=== PATIENT | male | born 1975 | race African-American/Black ===

== ENCOUNTER 2017-04-14 09:44 | Observation (INO) | payer SELFPAY ==
[2017-04-14] MEDS ORDERED: Nitroglycerin 0.4 MG TAB (25 Tab Bottle) ONE (10:14)
[2017-04-14 10:16] LABS: #Basophils 0.1 thou/uL (0.0-0.2); #Eosinphils 0.4 thou/uL (0.0-0.7); #Lymphocytes 3.9 thou/uL (1.20-3.40); #Neutrophils 7.1 thou/uL (1.40-6.50); %Eosinophils 2.9 % (0.0-10.0); %Lymphocytes 31.2 % (21.0-51.0); %Monocytes 8.3 % (0.0-10.0); Hematocrit 46.5 % (42.0-52.0); Mean Platelet Volume 6.7 fL (7.4-10.4); Red Blood Cell (RBC) Count 4.72 mill/uL (4.70-6.10); White Blood Cell (WBC) Count 12.5 thou/uL (4.8-10.8)
--- NOTE | 2017-04-14 10:18 | RAD ---
SINGLE VIEW OF THE CHEST: Comparison: 10-31-13 History: Chest pain since last night. FINDINGS: Single view of the chest shows a normal sized cardiomediastinal silhouette. There is no evidence of consolidation, mass, or pleural effusion. The bones are unremarkable. IMPRESSION: No evidence of acute cardiopulmonary disease. POS: [facility]
[2017-04-14 10:42] LABS: ALT (SGPT) 31 U/L (8-55); AST (SGOT) 29 U/L (5-34); Alkaline Phosphatase 66 U/L (40-150); Anion Gap 11 mmol/L (10-20); BUN (Urea Nitrogen) 10 mg/dL (8.9-20.6); Bilirubin, Total 0.3 mg/dL (0.2-1.2); CK (CPK) 719 U/L (30-200); Calc. Creatinine Clearance 0 mL/min (70-130); Calcium 9.5 mg/dL (7.8-10.44); Carbon Dioxide 24 mmol/L (22-29); Chloride 108 mmol/L (98-107); Estimated GFR-MDRD 80; Globulin 3.2 g/dL (2.4-3.5); Lipase 45 U/L (8-78); Protein, Total 7.4 g/dL (6.0-8.3)
--- NOTE | 2017-04-14 12:42 | SS ---
PRIMARY CARE PHYSICIAN: [facility] call admission. REASON FOR ADMISSION: Chest pain. HISTORY OF PRESENT ILLNESS: A 41-year-old -[place] male who presented to emergency room wit h complaint of chest pain. The patient reports that yesterday night he played softball and he was e xcited and he was running and doing a lot of physical activity. Since then, he is having chest pain which is reproducible on his chest wall that increases with deep breathing as well as movement of t he chest. He denies any associated palpitations, dizziness, or syncope. Patient reports that only new things he noticed for the last week or so that whenever he runs, he gets out of breath. This is new for him. Otherwise, he was pretty much very active and able to run 4 miles without any problem , but lately he is feeling out of breath with exertion. 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 The patient is continuing to smoke. He denies any other medical history. He does report family his tory of coronary artery disease. Last night, he was uncomfortable. He was taking pain medications, but his pain was not improving an d this morning his pain got worse and that is why he decided to come to emergency room for evaluatio n. In the emergency room, chest x-ray was normal. Routine blood tests showed mild rhabdomyolysis. 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 REVIEW OF SYSTEMS: The following complete review of systems was negative, unless otherwise mentione d in the HPI or below: Constitutional: Weight loss or gain, ability to conduct usual activities. Skin: Rash, itching. Eyes: Double vision, pain. ENT/Mouth: Nose bleeding, neck stiffness, pain, tenderness. Cardiovascular: Palpitations, dyspnea on exertion, orthopnea. Respiratory: Shortness of breath, wheezing, cough, hemoptysis, fever or night sweats. Gastrointestinal: Poor appetite, abdominal pain, heartburn, nausea, vomiting, constipation, or diar cynthia. Genitourinary: Urgency, frequency, dysuria, nocturia. Musculoskeletal: Pain, swelling. Neurologic/Psychiatric: Anxiety, depression. Allergy/Immunologic: Skin rash, bleeding tendency. Please see my HPI for pertinent positive and negative. All other review of systems reviewed and neg ative except as mentioned in the HPI. PAST MEDICAL HISTORY: Reviewed and negative. PAST SURGICAL HISTORY: Reviewed and negative. PAST PSYCHIATRIC HISTORY: Reviewed and negative. SOCIAL HISTORY: The patient is smoking about 1 pack per day. He drinks alcohol socially. He denie s any other illicit drug abuse. 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 FAMILY HISTORY: Positive for coronary artery disease to his father. No family history of cancer or stroke. EMERGENCY ROOM COURSE: The patient is given nitroglycerin 0.4 mg. CURRENT HOME MEDICATIONS: The patient is not taking any prescribed or non-prescribed medication. ALLERGIES: No known drug allergies. PHYSICAL EXAMINATION: VITAL SIGNS: Currently, blood pressure 137/88, pulse 60, respiratory rate 18, temperature 98.2, sat uration 96% on room air, and weight 84.3 kilograms. GENERAL: The patient is currently alert, awake, no obvious acute distress. HEAD: Normocephalic, atraumatic. EYES: Pupils round, reactive to light. Extraocular muscle intact. ENT: Oropharynx within normal limits. Moist mucous membranes, no oral lesion, no pharyngeal erythe ma, no exudate. NECK: Supple, range of motion is normal. No meningeal signs of irritation. LUNGS: Clear to auscultation without any rhonchi or rales. CARDIAC: S1, S2 regular. No murmur, no gallop, no rub. ABDOMEN: Soft, bowel sounds present, nontender, nondistended. No organomegaly, no mass, no suprapu bic tenderness. BACK: Examination unremarkable. No CVA tenderness. EXTREMITIES: Upper extremity passive movements of all joints are normal. Lower extremity, no edema . Good peripheral pulsation. No calf tenderness. SKIN: No skin rash. HEMATOLOGICAL SYSTEM: No lymphadenopathy. PSYCHIATRIC: Normal affect. NEUROLOGIC: Nonfocal examination. The patient moves all 4 limbs. Plantar bilateral flexor. IMAGING AND SIGNIFICANT LABORATORY DATA: 1. EKG based on my review reveals normal sinus rhythm without any ischemic changes. Chest x-ray ba sed on my review, no acute cardiopulmonary process. 2. CBC: WBC 12.5, hemoglobin 15.0, platelet 283, MCV 98.4. BMP: Sodium 139, potassium 4.0, chlor esetr 108, carbon dioxide 24, BUN 10, creatinine 1.22, glucose 94, calcium 9.5. 3. LFT: AST 29, ALT 31, alkaline phosphatase 66, albumin 4.2, lipase 45, CK 719, CK-MB 2.2, tropon in I 0.010. ASSESSMENT AND PLAN/IMPRESSION: 1. Chest pain. Patient's chest pain description is classic for musculoskeletal pain. Patient has elevated total CK and he has mild rhabdomyolysis. The patient's chest pain has started after doing strenuous physical activity and he has reproducible pain. He has a description of pain in which frances n is getting worse with movement and deep breathing is most likely because of that. This patient do es not have any risk factor for thromboembolic disorder. At this point, we will check D-dimer to ru le out any thromboembolic disorder. The patient's pain will be controlled with Toradol 30 mg IV q.6 hourly and we will also use [place] on a p.r.n. basis. Once pain is under control, then I advised th is patient to take Tylenol or Motrin over the counter basis as needed basis. Another description of this particular patient is dyspnea with exertion and that is new to him and that is why I will perf orm D-dimer test as well as I will perform stress test to rule out underlying ischemia, considering angina equivalent given his history of smoking as well as family history. 2. Tobacco abuse disorder. Smoking cessation counseling given. Healthy lifestyle measures discuss ed with the patient. 3. Rhabdomyolysis. The patient is advised to avoid strenuous physical activity and patient is advi sed to keep himself hydrated well with oral liquids. 4. Deep venous thrombosis prophylaxis not needed because we are expecting discharge in 24 hours. 5. Gastrointestinal prophylaxis, Pepcid 20 mg p.o. b.i.d. 6. Code status: The patient is FULL CODE. Disposition plan based on stress test result. DATE OF ADMISSION: 04/14/2017 DATE OF DISCHARGE: 04/14/2017 DISCHARGE DISPOSITION: Home. PRIMARY DISCHARGE DIAGNOSES: 1. Chest pain, likely due to musculoskeletal. 2. Rhabdomyolysis. 3. Dyspnea on exertion, ruled out acute coronary syndrome. SECONDARY DISCHARGE DIAGNOSIS: Tobacco abuse disorder. PRIMARY PROCEDURES AND OPERATIONS: None. RADIOLOGICAL INVESTIGATION: Chest x-ray normal. Stress test pending. SIGNIFICANT LABORATORY DATA: Please see my HPI above for further laboratory results. CONTRAINDICATIONS: None. CODE STATUS: FULL CODE. 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 ALLERGIES: No known drug allergy. DISCHARGE PLAN: Post hospital, the patient will follow with primary care physician. DISCHARGE MEDICATIONS: The patient is advised to take [id number] Tylenol and Motrin as needed basis. The patient is also advised to take Pepcid 20 mg p.o. b.i.d. with Motrin as needed basis. HOSPITAL COURSE: The patient came for chest pain and chest pain started after strenuous physical ac tivity. His description of chest pain was musculoskeletal. Lately, he is also experiencing dyspnea on exertion and considering angina equivalent we are trying to do stress test and if stress test is negative, then this patient will be discharged later on home today. Plan of care discussed with brenton vicente patient and family member at bedside in the emergency room.
[2017-04-14] MEDS ORDERED: Senokot 8.6 MG TAB PO PRN (12:53)
[2017-04-14] MEDS ORDERED: Ondansetron ODT 4 MG TAB PO PRN (12:53)
[2017-04-14] MEDS ORDERED: Loperamide HCl 2 MG CAP PO PRN (12:53)
[2017-04-14] MEDS ORDERED: Milk Of Magnesia 30 ML UDCUP PO PRN (12:53)
[2017-04-14] MEDS ORDERED: Ondansetron HCl/PF 4 MG/2 ML Vial IVP PRN (12:53)
[2017-04-14] MEDS ORDERED: Mag-Al 1200 mg/1200 mg/30 ML UDCUP PO PRN (12:53)
[2017-04-14] MEDS ORDERED: Zolpidem Tartrate 5 MG TAB PO PRN (12:53)
[2017-04-14] MEDS ORDERED: HYDROcodone/Acetaminophen 5/325 mg Tablet PO PRN (12:53)
[2017-04-14] MEDS ORDERED: Ketorolac Tromethamine 30 MG/ML VIAL IVP PRN (12:53)
[2017-04-14] MEDS ORDERED: Acetaminophen 325 MG TAB PO PRN (12:53)
[2017-04-14 12:55] VITALS: BP 129/66; TEMP 97.7; BMI 30.9
[2017-04-14 13:35] LABS: Troponin I Less than 0.010 ng/mL (< 0.028)
[2017-04-14] MEDS ORDERED: Sodium Chloride 0.9% 500 ML IV SCH (15:30)
[2017-04-14] MEDS ORDERED: Famotidine 20 MG TAB PO SCH (21:00)
[2017-04-15] MEDS ORDERED: Aspirin 325 MG TAB PO SCH (09:00)
--- NOTE | 2017-04-17 14:48 | EKG ---
Test Reason : Blood Pressure : / mmHG Vent. Rate : 063 BPM Atrial Rate : 063 BPM P-R Int : 138 ms QRS Dur : 064 ms QT Int : 358 ms P-R-T Axes : 056 056 048 degrees QTc Int : 366 ms Normal sinus rhythm Normal ECG Confirmed by NATHALIA FELIX, CLAYTON Foreman ([id number]), editorial manager ROSA REINOSO ([id number]) on 04/17/2017 2:47:59 PM Referred By: Confirmed By:CLAYTON SLOAN MD
== END 2017-04-14 17:10 | disposition home or self-care (01) ==
LOC: ERS 09:44 → 2SW 11:07
PROVIDERS: ADMIT Internal Medicine; ATTEND Internal Medicine
DX: R07.89 Other chest pain (principal); M62.82 Rhabdomyolysis; R06.00 Dyspnea, unspecified; F17.219 Nicotine dependence, cigarettes, with unspecified nicotine-induced disorders; Z82.49 Family history of ischemic heart disease and other diseases of the circulatory system
CPT/HCPCS: 36415; 71010; 80053; 80061; 82550; 82553; 83690; 84484; 85025; 85379; 93005; 93017; G0378